=== PATIENT | female | born 1985 | race African-American/Black ===

== ENCOUNTER 2018-12-01 11:00 | Emergency (ER) | payer MEDICAID, MEDICARE ==
[~2018-12-01] VITALS: Ht 167.6 cm; Wt 68.0 kg
[2018-12-01] MEDS ORDERED: ACETAMINOPHEN 325MG TABLET PO STA (13:09)
[2018-12-01] MEDS ORDERED: ALBUTEROL (0.083%) 2.5MG/3ML NEB HHN STA (13:09)
[2018-12-01] MEDS ORDERED: SODIUM CHLORIDE 0.9% 1,000 ML IV ONE (15:18)
[2018-12-01 16:43] VITALS: BP 121/79
== END 2018-12-01 16:43 | disposition home or self-care (01) ==
LOC: ER 11:38
DX: J11.1 Influenza due to unidentified influenza virus with other respiratory manifestations (principal); Z88.2 Allergy status to sulfonamides
CPT/HCPCS: 71045; 81025; 87804; 94640; 99284; J7030; J7611

== ENCOUNTER 2019-11-30 01:25 | Emergency (ER) | payer MEDICAID ==
[~2019-11-30] VITALS: Ht 167.6 cm; Wt 64.0 kg
[2019-11-30] MEDS ORDERED: IPRATROPIUM BROMIDE (0.02%) 0.5MG/2.5ML NEB HHN STA (04:58)
[2019-11-30] MEDS ORDERED: PREDNISONE 20MG TABLET PO STA (04:58)
[2019-11-30] MEDS ORDERED: ALBUTEROL (0.083%) 2.5MG/3ML NEB HHN STA (04:58)
[2019-11-30 10:05] VITALS: BP 120/74
== END 2019-11-30 10:06 | disposition home or self-care (01) ==
LOC: ER 01:25
DX: J40 Bronchitis, not specified as acute or chronic (principal); R07.89 Other chest pain
CPT/HCPCS: 71045; 81025; 87804; 94640; 99284; J7512; J7611; Z7610